=== PATIENT | female | born 1975 | race African-American/Black ===

== ENCOUNTER 2025-03-22 17:06 | Emergency (ER) | payer OTHER, SELFPAY ==
[2025-03-22 17:08] VITALS: BP 154/106
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
[2025-03-22] MEDS: NORVASC 5 MG PO (17:35)
[2025-03-22 18:18] VITALS: BP 159/107
== END 2025-03-22 18:45 ==
LOC: EMR 17:06
PROVIDERS: EMERGENCY PHYSICIAN Emergency Medicine
DX: I10 Essential (primary) hypertension (principal); F31.9 Bipolar disorder, unspecified; T46.5X6A Underdosing of other antihypertensive drugs, initial encounter; Z91.128 Patient's intentional underdosing of medication regimen for other reason
CPT/HCPCS: 99283; 93005